=== PATIENT | male | born 1995 | race Two or more races ===

== ENCOUNTER 2022-03-15 13:24 | Emergency (ER) | payer OTHER ==
[~2022-03-15] VITALS: Ht 167.6 cm; Wt 65.8 kg
[2022-03-16] MEDS ORDERED: ULTRAM50 MG PO (11:48)
[2022-03-16] MEDS ORDERED: STONEX PO (11:48)
[2022-03-16] MEDS ORDERED: DICLOFENAC POTA50 MG PO (11:48)
== END 2022-03-15 21:05 | disposition home or self-care (01) ==
LOC: ER 13:24
DX: N23 Unspecified renal colic (principal)

== ENCOUNTER 2022-03-16 05:37 | Emergency (ER) | payer OTHER ==
[~2022-03-16] VITALS: Ht 167.6 cm; Wt 65.8 kg
[2022-03-16] MEDS ORDERED: STONEX PO (11:48)
[2022-03-16] MEDS ORDERED: ULTRAM50 MG PO (11:48)
[2022-03-16] MEDS ORDERED: DICLOFENAC POTA50 MG PO (11:48)
== END 2022-03-16 12:03 ==
LOC: ER 05:37
DX: N20.1 Calculus of ureter (principal); R10.9 Unspecified abdominal pain

== ENCOUNTER 2022-06-30 04:42 | Emergency (ER) | payer OTHER ==
[~2022-06-30] VITALS: Ht 167.6 cm; Wt 65.8 kg
[~2022-06-30 04:42] MED LIST: DICLOFENAC POTA50 MG PO; STONEX PO; ULTRAM50 MG PO
== END 2022-06-30 11:45 | disposition home or self-care (01) ==
LOC: ER 04:42
DX: R10.31 Right lower quadrant pain (principal); N20.2 Calculus of kidney with calculus of ureter

== ENCOUNTER 2022-07-29 22:23 | Emergency (ER) | payer OTHER ==
[~2022-07-29] VITALS: Ht 167.6 cm; Wt 65.8 kg
== END 2022-07-30 01:21 | disposition home or self-care (01) ==
LOC: ER 22:23
DX: R10.31 Right lower quadrant pain (principal); N20.0 Calculus of kidney; Z20.822 Contact with and (suspected) exposure to COVID-19

== ENCOUNTER 2024-01-10 02:22 | Emergency (ER) | payer OTHER ==
[~2024-01-10] VITALS: Ht 167.6 cm; Wt 61.2 kg
[2024-01-10] MEDS ORDERED: TAMSULOSIN HCL 0.4 MG CAP PO STA (04:33)
[2024-01-10] MEDS ORDERED: KETOROLAC TROMETHAMINE 30 MG VIAL IV STA (04:33)
[2024-01-10] MEDS ORDERED: KETOROLAC TROMETHAMINE 30 MG VIAL ONE (04:36)
[2024-01-10] MEDS ORDERED: TAMSULOSIN HCL 0.4 MG CAP PO ONE (04:37)
[2024-01-10] MEDS ORDERED: SODIUM CHLORIDE 0.45 % 1,000 ML IV ONE (04:45)
[2024-01-10 05:04] LABS: HEMOGLOBIN 13.9 g/dL (13-16.00); MEAN CELL VOLUME 93.4 fL (80.0-100.00); MEAN CORPUSCULAR HEMOGLOBIN 31.6 pg (27.00-32.0); MEAN CORPUSCULAR HGB CONC 33.8 g/dl (32.0-36.0); PLATELET COUNT 212 K/uL (150-450); RED BLOOD COUNT 4.39 M/uL (4.00-6.00); RED CELL DISTRIBUTION WIDTH 13.4 % (11.5-14.5)
[2024-01-10 05:22] LABS: URINE APPEARANCE Cloudy; URINE BILIRRUBIN Negative (NEGATIVE); URINE BLOOD Small; URINE COLOR Yellow; URINE GLUCOSE Negative (NEGATIVE); URINE KETONE Negative (NEGATIVE); URINE LEUKOCYTE Negative; URINE NITRATE Negative; URINE PROTEIN Negative (NEGATIVE); URINE UROBILINOGEN 0.2 E.U./dl
[2024-01-10 05:23] LABS: URINE RBC 57.1 uL (0.0-20.8); URINE WBC 13.1 uL (0.0-23.2)
[2024-01-10 05:25] LABS: URINE BACTERIA 3.7 uL (0.0-1933); URINE CAST 0.15 uL (0.0-1.40); URINE EPITHELIAL CELLS 0.4 uL (0.0-38.8)
[2024-01-10 05:26] LABS: CALCIUM 8.3 mg/dL (8.5-10.1); CREATININE SERUM 0.65 mg/dL (0.70-1.30); GFR 144.24; POTASSIUM 3.78 mEq/L (3.5-5.1)
== END 2024-01-10 10:01 | disposition home or self-care (01) ==
LOC: ER 02:22
PROVIDERS: General Practice
DX: N20.2 Calculus of kidney with calculus of ureter (principal)

== ENCOUNTER 2024-03-11 23:15 | Emergency (ER) | payer OTHER ==
[~2024-03-11] VITALS: Ht 167.6 cm; Wt 61.2 kg
[2024-03-12] MEDS ORDERED: KETOROLAC TROMETHAMINE 60 MG VIAL IM STA (03:01)
[2024-03-12] MEDS ORDERED: DEXAMETHASONE SODIUM PHOSPHATE 4 MG/ML VIAL IM STA (03:02)
[2024-03-12] MEDS ORDERED: ORPHENADRINE CITRATE 30 MG/ML AMPUL IM STA (03:02)
[2024-03-12] MEDS ORDERED: ACETAMINOPHEN 500 MG GEL..CAP PO STA (03:02)
== END 2024-03-12 04:22 | disposition home or self-care (01) ==
LOC: ER 23:15
DX: M62.830 Muscle spasm of back (principal); V29.99XA Rider (driver) (passenger) of other motorcycle injured in unspecified traffic accident, initial encounter; Y93.89 Activity, other specified; Y92.413 State road as the place of occurrence of the external cause

== ENCOUNTER → 2024-03-11 | Emergency (ER) | payer OTHER | END | disposition left against medical advice (07) | LOC: ER 16:58 | DX: Z53.21 Procedure and treatment not carried out due to patient leaving prior to being seen by health care provider (principal) ==